=== PATIENT | male | born 1985 | race Caucasian/White ===

== ENCOUNTER 2019-10-23 16:28 | Emergency (ER) | payer OTHER ==
[~2019-10-23] VITALS: Ht 175.3 cm; Wt 68.2 kg
--- NOTE | 2019-10-23 17:22 | REPVR ---
PROCEDURE INFORMATION: Exam: CT Lumbar Spine Without Contrast Exam date and time: 10/23/2019 5:05 PM Age: 34 years old Clinical indication: Injury or trauma; Fall; Initial encounter; Blunt trauma (contusions or hematomas); Additional info: Fall pain TECHNIQUE: Imaging protocol: Computed tomography images of the lumbar spine without contrast. Radiation optimization: All CT scans at this facility use at least one of these dose optimization techniques: automated exposure control; mA and/or kV adjustment per patient size (includes targeted exams where dose is matched to clinical indication); or iterative reconstruction. COMPARISON: No relevant prior studies available. FINDINGS: Vertebrae: See Discs/spinal Canal/neural Foramina Finding. Discs/Spinal canal/Neural foramina: Bulging annulus and right posterolateral disc herniation at L4-L5 results in a moderate central spinal stenosis and likely compression of the traversing and possibly exiting ipsilateral nerve roots. Disc herniation extends approximately 8 mm inferior to the superior endplate of L5. There is a moderate central spinal stenosis L3-L4 secondary to diffuse annular bulging, thickened ligamentum flavum without facet joint arthropathy. There is a mild central spinal stenosis L2-L3 secondary to diffuse annular bulging, thickened ligamentum flavum without facet joint arthropathy. Soft tissues: Unremarkable. IMPRESSION: 1. Bulging annulus and right posterolateral disc herniation at L4-L5 results in a moderate central spinal stenosis and likely compression of the traversing and possibly exiting ipsilateral nerve roots. Disc herniation extends approximately 8 mm inferior to the superior endplate of L5. 2. Moderate central spinal stenosis at L3-L4 and mild central spinal stenosis at L2-L3. Electronically signed by: Silver Cabrera On 10/23/2019 17:21:55 PM
[2019-10-23] MEDS: KETOROLAC 60 MG/2 ML VIAL (J1885) IM ONE (17:23)
[2019-10-23] MEDS: diazePAM 10 MG/2 ML INJ (J3360) IM ONE (17:24)
[2019-10-23 18:30] VITALS: BP 111/63
[2019-10-23] MEDS ORDERED: SOMA350T PO (18:33)
[2019-10-23] MEDS ORDERED: IBUP-1022 PO (18:33)
--- NOTE | 2019-10-23 18:38 | REP ---
Clinical: Trauma. Fall. Technique: Frontal view of the pelvis with a AP and cross-table lateral views of the right hip. Findings: Evaluation is somewhat limited due to significant scattered overlying foreign body material. No obvious acute fracture or dislocation is appreciated. Impression: Limited examination without obvious acute fracture or dislocation. Electronically Signed by Kolby Baird MD 10/23/2019 06:29 P
== END 2019-10-23 18:56 | disposition home or self-care (01) ==
LOC: EDSEX 16:28 → EDBD 16:28 → M ED 16:28
DX: M51.26 Other intervertebral disc displacement, lumbar region (principal); G89.29 Other chronic pain
CPT/HCPCS: 72131; 73502; 96372; 99284; J1885; J3360

== ENCOUNTER → 2019-11-02 | Outpatient (REF) | payer OTHER ==
[~2019-11-02] MED LIST: GABA-845 PO; IBUP-1022 PO; OXYC1TAB23 PO; PERC5TAB12 PO; SOMA350T PO
== END ==
LOC: M LABDRAW1 09:52
PROVIDERS: ATTEND Orthopaedic Surgery
DX: M51.26 Other intervertebral disc displacement, lumbar region (principal); L45 Papulosquamous disorders in diseases classified elsewhere

== ENCOUNTER 2019-11-03 10:50 | Day surgery (SDC) | payer OTHER ==
[~2019-11-03] VITALS: Ht 175.3 cm; Wt 68.7 kg
[~2019-11-03 10:50] MED LIST changes: +CelecoXIB 400 MG CAP PO ONE; +LIDOCAINE 1% MDV 20ML VIAL SQ PRN; +LIDOCAINE 2% INJ 100 MG/5 ML SDV (FOR ANES.) As Ordered ONE; +LR 1,000 ML IV ONE; +MIDAZOLAM INJ 2 MG/2 ML VIAL (J2250) As Ordered ONE; +ONDANSETRON 4MG/2ML VIAL (J2405) As Ordered ONE; -PERC5TAB12 PO; +PERCOCET 5MG/325MG TAB PO ONE; +ROCURONIUM BROMIDE 50 MG/5 ML VIAL As Ordered ONE; +ceFAZolin SOD 2 GM in IV 1 EA IV ONE; +dexameTHASONE 4 MG/ML 1ML VIAL (J1100) As Ordered ONE; +fentaNYL 100 MCG/2 ML INJECTION (J3010) As Ordered ONE; +propofoL 200 MG/20 ML VIAL As Ordered ONE
[2019-11-03] MEDS ORDERED: BUPIVACAINE/EPIN 0.25% 30 ML VIAL As Ordered ONE (11:37)
[2019-11-03] MEDS ORDERED: THROMBIN SOLN 20,000 UNITS KIT As Ordered ONE (11:37)
[2019-11-03] MEDS ORDERED: BACITRACIN PWD 50,000 UNITS VIAL As Ordered ONE (11:38)
[2019-11-03] MEDS ORDERED: KETAMINE HCL 200 MG/20 ML VIAL As Ordered ONE (16:50)
[2019-11-03] MEDS ORDERED: propofoL 200 MG/20 ML VIAL As Ordered ONE (16:50)
[2019-11-03] MEDS ORDERED: LIDOCAINE 2% INJ 100 MG/5 ML SDV (FOR ANES.) As Ordered ONE (17:54)
[2019-11-03] MEDS ORDERED: SUGAMMADEX SODIUM 500 MG/5 ML VIAL (BRIDION) As Ordered ONE (18:26)
--- NOTE | 2019-11-03 18:47 | REP ---
Portable cross-table lateral view of the lumbar spine. History: Right laminectomy. Findings: Eight portably obtained cross-table lateral view of the lumbar spine time stamped 06:25 p.m. demonstrates an intraoperative probe at the dorsal aspect of the spinal canal at the level of the L5-S1 disc. Electronically Signed by Kiel Henderson MD 11/03/2019 06:38 P
[2019-11-03] MEDS ORDERED: fentaNYL 100 MCG/2 ML INJECTION (J3010) As Ordered ONE (20:10)
[2019-11-03] MEDS ORDERED: PROMETHAZINE INJ 25 MG/ML VIAL (J2550) IV PRN (21:00)
[2019-11-03] MEDS ORDERED: ONDANSETRON 4MG/2ML VIAL (J2405) IV PRN (21:00)
[2019-11-03] MEDS ORDERED: METOCLOPRAMIDE INJ 10MG/2ML VIAL (J2765) IV PRN (21:00)
[2019-11-03] MEDS ORDERED: LR 1,000 ML IV SCH (21:00)
[2019-11-03] MEDS: fentaNYL 100 MCG/2 ML INJECTION (J3010) IV PRN ×4 (21:04→21:32)
[2019-11-03] MEDS: PERCOCET 5MG/325MG TAB PO PRN ×2 (21:10→21:38)
[2019-11-03] MEDS ORDERED: PERCOCET 5MG/325MG TAB PO PRN (21:15)
[2019-11-03] MEDS: GABAPENTIN 100 MG CAP PO SCH (21:25)
[2019-11-03] MEDS ORDERED: MORPHINE 2 MG/ML 1ML VIAL (J2270) As Ordered ONE ×2 (21:34→21:51)
[2019-11-03] MEDS: MORPHINE 2 MG/ML 1ML VIAL (J2270) IV PRN ×3 (21:40→22:03)
[2019-11-03 22:30] VITALS: BP 115/78
[2019-11-03 23:00] VITALS: BP 118/81
[2019-11-03] MEDS: LR 1,000 ML IV SCH (23:00)
[2019-11-04] VITALS: BP 117/64
[2019-11-04] MEDS: ceFAZolin SOD 2 GM in IV 1 EA IV SCH ×2 (00:15→05:50)
[2019-11-04] MEDS: HYDROMORPHONE HCL 0.5 MG/ 0.5 ML SYRINGE (J1170 PER 1) IV PRN ×2 (00:16→05:50)
[2019-11-04] MEDS: LR 1,000 ML IV SCH (00:36)
[2019-11-04 01:00] VITALS: BP 114/68
[2019-11-04 02:00] VITALS: BP 114/65
[2019-11-04 03:00] VITALS: BP 113/65
[2019-11-04] MEDS: PERCOCET 5MG/325MG TAB PO PRN ×2 (03:42→08:43)
[2019-11-04] MEDS: GABAPENTIN 100 MG CAP PO SCH (05:47)
[2019-11-04 06:00] VITALS: BP 110/63
[2019-11-04] MEDS ORDERED: PERC5TAB12 PO ×2 (06:28→13:10)
[2019-11-04] MEDS ORDERED: METAMUCIL (PSYLLIUM) PACKET PO SCH (09:00)
[2019-11-04] MEDS ORDERED: CelecoXIB (CeleBREX) 100 MG CAP PO ONE (09:00)
[2019-11-04] MEDS ORDERED: CelecoXIB 400 MG CAP PO ONE (09:00)
[2019-11-04 10:00] VITALS: BP 113/70
--- NOTE | 2019-11-05 00:20 | RO ---
DATE OF PROCEDURE: 11/03/2019 PREOPERATIVE DIAGNOSIS: L4-5 disc extrusion with inferior migration producing severe right-sided spinal stenosis of the central canal, lateral recess and dense right lower extremity radiculopathy. POSTOPERATIVE DIAGNOSIS: L4-5 disc extrusion with inferior migration producing severe right-sided spinal stenosis of the central canal, lateral recess and dense right lower extremity radiculopathy. PROCEDURE PERFORMED: Right L5 unilateral laminectomy, right L4 additional level unilateral laminectomy. SURGEON: Jessee Jhaveri MD SENIOR BACK END JAVA DEVELOPER: Gerri Arias, Medical Student III ANESTHESIA: General, Dr. Almaguer. ESTIMATED BLOOD LOSS: Less than 50 mL, replaced with crystalloid. No complications. INTRAOPERATIVE FINDINGS: Include a large extruded inferiorly migrated disc herniation that seemed to be under the shoulder and into the axillary region of the L5 nerve root. CONSENT: Reviewed in detail, including a lexie discussion of the pathology involved, the procedure proposed, alternatives including doing nothing, and risks, including but not limited to, pain, failure, nerve injury, need for more surgery, bleeding, blood loss, blood clots and other problems. The patient agrees to proceed. INDICATIONS FOR SURGERY: Intractable discomfort radiating down the right lower extremity, dense sensory numbness right lower extremity in an L5 distribution and profound weakness of the extensor hallucis longus (EHL) and tibialis anterior, 3/5 motor strength. MRI evidence of a large disc extrusion with migration inferiorly under the lamina of L5 from the 4-5 level. DESCRIPTION OF PROCEDURE: Identified in the holding area, site and side verified, brought to the operating room. Once anesthesia was administered, he was positioned in usual fashion on the Amrit frame for exposure of the lumbar spine. Axillary rolls utilized, knees were slightly flexed. I stood on the patient's right, the surgical coder stood on the patient's left, the medical student provided minimal assistance throughout the case including operating suction apparatus. Next, the first portion of procedure was accomplished with 3.5 loupe magnification and a headlamp. Once the patient was sterilely prepped and draped in the usual fashion, we began the surgical procedure. The incision was based on palpation of the iliac crest and spinous processes, outlined with a marking pen, infiltrated with 0.25% Marcaine with epinephrine. Two fingerbreadth incision was made over the L4-5 level, developed down through skin and subcuticular tissues to the posterior lumbar fascia. Posterior lumbar fascia sharply reflected off of the spinous processes by dissection, continued along the spinous process of 5, exposing the L5 lamina. A high-speed drill was utilized to drill a divot in the L5 lamina. A Jono Adrian retractor was placed within the divot and next, a cross-table lateral x-ray was taken to verify our correct level. Next, once this was accomplished the dissection was further developed superiorly exposing the 4-5 interspace and the L4 inferior lamina. Next, Shadow-Line retractor was placed. Next, this operating microscope was sterilely draped and brought in for this portion of procedure. I then utilized Leksells to remove the posterior lamina at 5 and 4. I then utilized the high-speed bur to implement a right unilateral laminectomy of L5 undercutting the spinous process of 5 to the bare area of 5 at the 4-5 level, and also extended some limited additional level laminectomy using the high-speed bur to remove the inferior lamina of 4 to near the bare area of 4 to allow access of the disc annulus complex at 4-5 where the extrusion was thought to originate from. The facet complex was protected, perhaps 10% or less of the 4-5 facet was compromised in the dissection. I removed ligamentum flavum using pituitaries as well as a curette, elevating it and removing it, as well as using #2 Kerrisons. Once the midline ligamentum flavum was removed from the L4-5 level through the L5-S1 level and the thecal sac was exposed, I probed with a De La Cruz Adrian around the annulus at L4-5, which was not appreciated to be severely bulging, only a small annular bulge. I probed additionally in the lateral recess inferior to the disc, and I removed extruded disc material from the subligamentous area just below the annulus of 4-5. That amounted to about a 1 cm x 1 cm x 0.3 cm fragment in my opinion; this was passed off. Next, the dissection continued. I decompressed the lateral recess, removing additional ligamentum flavum using #1 and #2 Kerrisons, and I identified the traversing 5th nerve root at 4-5 level, traced down and appreciated additional subligamentous material that extended to the axillary area of the 5th nerve root, as well as elevating the shoulder. I was able through a subligamentous approach at the shoulder of the nerve root to obtain access to the leading edge of the disc and tease the disc free using a Matthews small pituitary and De La Cruz Adrian, removing it, and by and large a large fragment that was also sent to pathology. That fragment measuring more than 1 x 1 x 1 cm. Next, once this was accomplished, I explored for additional free fragments. Only some small free fragments were appreciated. Thrombin Gelfoam and bipolar cautery were utilized for hemostasis. Next, once this was accomplished, I irrigated with bacitracin-impregnated saline solution as well as concentrated bacitracin. Next, once this was accomplished, I inspected. No cerebrospinal fluid (CSF) leak, no evidence of active bleeding were appreciated. Thrombin Gelfoam was removed. Next, all counts were correct. Next, I removed retractors. The operating microscope was moved back from the wound. I inspected for any sidewall bleeding along the paraspinal muscles. I closed the posterior lumbar fascia using interrupted stitch. I closed the Ricardo's fascia and deep dermis using interrupted stitch. I applied a Prineo dressing over the wound, further closing the wound. Next, the patient was then able to be log-rolled to the hospital bed, extubated, moved to recovery room in good condition moving all four extremities. For further details, please refer to medical record.
== END 2019-11-04 13:30 | disposition home or self-care (01) ==
LOC: M SDC 10:50 → M MS5PR 22:25 → M SDC 11-04 13:30
PROVIDERS: ATTEND Orthopaedic Surgery
DX: M48.062 Spinal stenosis, lumbar region with neurogenic claudication (principal); M51.16 Intervertebral disc disorders with radiculopathy, lumbar region; F17.210 Nicotine dependence, cigarettes, uncomplicated; Z79.899 Other long term (current) drug therapy; Z79.891 Long term (current) use of opiate analgesic; Z87.828 Personal history of other (healed) physical injury and trauma
CPT/HCPCS: 63047; 63048; 72100; 88304; 96361; 96365; 96366; 96375; 96376; J0690; J1100; J1170; J2250; J2270; J2405; J3010

== ENCOUNTER → 2019-11-18 | Outpatient (REF) | payer OTHER ==
[~2019-11-18] MED LIST changes: -CelecoXIB 400 MG CAP PO ONE; -LIDOCAINE 1% MDV 20ML VIAL SQ PRN; -LIDOCAINE 2% INJ 100 MG/5 ML SDV (FOR ANES.) As Ordered ONE; -LR 1,000 ML IV ONE; -MIDAZOLAM INJ 2 MG/2 ML VIAL (J2250) As Ordered ONE; -ONDANSETRON 4MG/2ML VIAL (J2405) As Ordered ONE; +PERC5TAB12 PO; -PERCOCET 5MG/325MG TAB PO ONE; -ROCURONIUM BROMIDE 50 MG/5 ML VIAL As Ordered ONE; -ceFAZolin SOD 2 GM in IV 1 EA IV ONE; -dexameTHASONE 4 MG/ML 1ML VIAL (J1100) As Ordered ONE; -fentaNYL 100 MCG/2 ML INJECTION (J3010) As Ordered ONE; -propofoL 200 MG/20 ML VIAL As Ordered ONE
== END ==
LOC: M LABDRAW1 11:17
PROVIDERS: ATTEND Orthopaedic Surgery
DX: Z47.89 Encounter for other orthopedic aftercare (principal)

== ENCOUNTER → 2020-04-03 | Outpatient (CLI) | payer OTHER | LOC: M LABSMTC 09:56 | PROVIDERS: ATTEND Physical Medicine & Rehabilitation | DX: Z03.818 Encounter for observation for suspected exposure to other biological agents ruled out (principal); Z11.59 Encounter for screening for other viral diseases ==

== ENCOUNTER → 2021-11-28 | Outpatient (CLI) | payer OTHER ==
[~2021-11-28] MED LIST changes: +GABA-283 PO; -GABA-845 PO
[2021-11-28 13:35] LABS: BLOOD UREA NITROGEN 11 MG/DL (7-18); CREATININE FOR GFR 1.03 MG/DL (0.70-1.30); GLOMERULAR FILTRATION RATE > 60.0 (>60)
== END ==
LOC: M PLALAB 09:59
PROVIDERS: ATTEND Physical Medicine & Rehabilitation
DX: M54.16 Radiculopathy, lumbar region (principal)